=== PATIENT | female | born 1995 | race Caucasian/White ===

== ENCOUNTER 2021-07-12 17:12 | Emergency (ER) | payer OTHER | END 2021-07-12 19:00 | disposition home or self-care (01) | LOC: ER1 17:12 | DX: G89.18 Other acute postprocedural pain (principal); M79.602 Pain in left arm | CPT/HCPCS: 99283 ==

== ENCOUNTER → 2021-07-13 | Outpatient (CLI) | payer BC | LOC: US 09:30 | DX: M79.602 Pain in left arm (principal) | CPT/HCPCS: 93971 ==